=== PATIENT | female | born 1950 | race Caucasian/White ===

== ENCOUNTER 2017-02-10 07:28 | Day surgery (SDC) | payer BC ==
[2017-02-08 12:42] VITALS: BMI 40.0
[2017-02-10 08:29] LABS: INR 0.99 (0.82-1.09); PROTHROMBIN TIME (PATIENT) 10.9 SEC (9.98-11.88)
--- NOTE | 2017-02-10 10:03 | HP ---
Past Medical History - Primary Care Physician PCP:: James Stallworth - Admission Chief Complaint: 66yo female with several episodes of postmenopausal bleeding and endometrial mass, admitted for hysteroscopy, polypectomy, and D&C. History of Present Illness: Several episodes of PMB in last year and noted to have an endometrial mass. The pt has no bleeding now. 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: No: Alzheimer's, CVA, Dementia, Migraine, Multiple Sclerosis, Peripheral Neuropathy, Parkinson's, Seizure, Syncope, TIA, Vertigo, Other Cardiovascular: Yes: HTN, Murmur Pulmonary: Yes: Sleep Apnea Gastrointestinal: No: Ascites, Cancer, Constipation, Crohn's Disease, Diverticulitis, Diverticulosis, Esophageal Varices, Gastritis, GERD, GI Bleed, Hemorrhoids, Hiatal Hernia, Inflamatory Bowel Disease, Irritable Bowel Disease, Pancreatitis, Peptic Ulcer Disease, Ulcerative Colitis, Other Hepatobiliary: No: Cirrhosis, Cholelithiasis, Cholecystitis, Choledocholithiasis , Hepatitis A, Hepatitis B, Hepatitis C, Other Renal/: No: Renal Failure, Renal Inusuff, BPH, Cancer, Hematuria, Hemodialysis , Neurogenic Bladder, Renal Calculi, UTI, Other Reproductive: Yes: Endometriosis ...Para: 2 ( x 2) Heme/Onc: No: Anemia, B12 Deficiency, Bleeding Disorder, Cancer, Current Chemotherapy, Current Radiation Therapy, Hemochromatosis, Hypercoaguable State, Myeloproliferative Synd, Sickle Cell Disease, Sickle Cell Trait, Thrombocytopenia, Other Infectious Disease: No: AIDS, C-Diff, Herpes Zoster, HIV, MRSA, STD's, Tuberculosis, VREF, Other Psych: No: Addictions, Anxiety, Bipolar, Depression, Panic, Psychosis, Schizophrenia, Other Musculoskeletal: Yes: Osteoarthritis Rheumatology: No: Fibromyalgia, Gout, Lupus, Rheumatoid Arthritis, Sarcoidosis, Vasculitis, Other ENT: No: Allergic Rhinitis, Sinusitis, Other Endocrine: No: York's Disease, José Miguel's Disease, Diabetes Insipidus, Diabetes Mellitus, Hyperparathyroidism, Hyperthyroidism, Hypothyroidism, Osteopenia, SIADH, Other Dermatology: No: Basal Cell, Cellulitis, Eczema, Melanoma, Psoriasis, Squamous Cell, Other Additional Medical History: Obesity - Past Surgical History Hx Myomectomy: No Hx Transabdominal Cerclage: No Additional Surgical History: Laparoscopy. Left breast Bx - Smoking History Smoking history: Current every day smoker Have you smoked in the past 12 months: Yes Aproximately how many cigarettes per day: 5 - Alcohol/Substance Use Hx Alcohol Use: Yes (wine dinner) - Social History Usual Living Arrangement: Yes: With Spouse ADL: Independent Occupation: Retired History of Recent Travel: No Home Medications - Allergies Allergies/Adverse Reactions: Allergies Allergy/AdvReac Type Severity Reaction Status Date / Time No Known Allergies Allergy Verified 02/10/17 08:16 - Home Medications Home Medications: Ambulatory Orders Atorvastatin Ca [Lipitor] 10 mg PO DAILY 02/08/17 Multivitamin [Poly-Vitamin] 1 each PO DAILY 02/08/17 [place]-3/Dha/Epa/Fish Oil [Fish Oil 500 mg Softgel] 1 each PO DAILY 02/08/17 Sertraline HCl [Zoloft] 25 mg PO DAILY 02/08/17 Valsartan [Diovan] 80 mg PO DAILY 02/08/17 Family Disease History - Family Disease History Family Disease History: Heart Disease: Father ([place]) Review of Systems - Review of Systems Constitutional: reports: No Symptoms Eyes: reports: No Symptoms HENT: reports: No Symptoms Neck: reports: No Symptoms Cardiovascular: reports: No Symptoms Respiratory: reports: No Symptoms Gastrointestinal: reports: No Symptoms Genitourinary: reports: No Symptoms Breasts: reports: No Symptoms Reported Musculoskeletal: reports: No Symptoms Integumentary: reports: No Symptoms Neurological: reports: No Symptoms Endocrine: reports: No Symptoms Hematology/Lymphatic: reports: No Symptoms Psychiatric: reports: No Symptoms Pain Intensity: 0 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 Vital Signs: Vital Signs Temperature 98.1 F 02/10/17 08:12 Pulse Rate 71 02/10/17 08:12 Respiratory Rate 18 02/10/17 08:12 Blood Pressure 110/84 02/10/17 08:12 O2 Sat by Pulse Oximetry (%) 99 02/10/17 08:12 Constitutional: Yes: No Distress, Calm, Obese Eyes: Yes: WNL, Conjunctiva Clear, EOM Intact HENT: Yes: WNL, Atraumatic, Normocephalic Neck: Yes: WNL, Supple, Trachea Midline Cardiovascular: Yes: WNL, Regular Rate and Rhythm Respiratory: Yes: WNL, Regular, CTA Bilaterally Gastrointestinal: Yes: Normal Bowel Sounds, Soft, Abdomen, Obese ...Rectal Exam: Yes: WNL Renal/: Yes: WNL Pelvis: Yes: WNL External Genitalia: Yes: Normal Internal Exam Deferred: No Vaginal Exam: Yes: Normal Cervix: Yes: Normal Uterus: Yes: Normal Adnexa: Normal: Left, Right Breast(s): Yes: WNL Musculoskeletal: Yes: WNL Extremities: Yes: WNL Edema: No Integumentary: Yes: WNL Neurological: Yes: WNL, Alert, Oriented ...Motor Strength: WNL Psychiatric: Yes: WNL, Alert, Oriented Imaging - Results Ultrasound: Report Reviewed Assessment/Plan 66yo female with several episodes of postmenopausal bleeding and endometrial mass, admitted for hysteroscopy, polypectomy, and D&C. We had discussed the risks, benefits, alternatives of surgery at length including but not limited to infection, bleeding, scarring, perforation, amenorrhea, hysterectomy, etc. The pt verbalized understanding and requested to proceed with surgery. I emphasized that all surgeries have risks and no guarantees can be provided
[2017-02-10] MEDS ORDERED: PROPOFOL 20 ML ONE ×4 (10:19→10:58)
[2017-02-10] MEDS ORDERED: ceFAZolin SODIUM 1 GM VIAL IVPB ONE (10:50)
[2017-02-10] MEDS ORDERED: ceFAZolin SODIUM 1 GM VIAL ONE (10:50)
[2017-02-10] MEDS ORDERED: KETOROLAC TROMETHAMINE 30 MG/1 ML VIAL ONE (11:09)
--- NOTE | 2017-02-10 11:21 | OP ---
Operative Note - Note: Operative Date: 02/10/17 Pre-Operative Diagnosis: Postmenopausal bleeding Operation: Hysteroscopy, D&C, excision of Polyp Findings: Uterine polyp Post-Operative Diagnosis: Same as Pre-op Surgeon: James Stallworth Anesthesiologist/COUNSELING PSYCHOLOGIST: Herman Garcia Anesthesia: General Specimens Removed: Uterine polyps, endometrial curettings Estimated Blood Loss (mls): 5 Blood Volume Replaced (mls): 0 Fluid Volume Replaced (mls): 500 Operative Report Dictated: Yes
[2017-02-10] MEDS ORDERED: ONDANSETRON 4 MG/2 ML VIAL IVPUSH PRN (11:24)
[2017-02-10] MEDS ORDERED: ACETAMINOPHEN 325 MG TABLET (FP) PO PRN (11:24)
[2017-02-10] MEDS ORDERED: LACTATED RINGERS SOLUTION 1,000 ML IV SCH (11:30)
[2017-02-10 11:51] VITALS: TEMP 97.7
--- NOTE | 2017-02-10 12:30 | OP ---
DATE OF OPERATION: 02/10/2017 PREOPERATIVE DIAGNOSIS: Postmenopausal bleeding. POSTOPERATIVE DIAGNOSIS: Postmenopausal bleeding and polyps. SURGERY: Hysteroscopy, polypectomy, dilatation and curettage. SURGEON: James Stallworth MD ANESTHESIOLOGIST: Herman Garcia DO ANESTHESIA: General. COMPLICATIONS: None. PATHOLOGY: Endometrial polyps, endometrial curettings. FINDINGS: Examination under anesthesia revealed a small anteverted uterus. No pelvic or adnexal masses. Examination was limited by morbid obesity. Hysteroscopy revealed a small uterine cavity with endometrial polyps. Endometrial polyps were removed without complications, and normal endometrial cavity was noted at the endof the procedure. SURGERY DESCRIPTION: The patient was met preoperatively. Risks, benefits, and alternatives of surgery were discussed in details. All questions were answered. The patient was then brought to the OR with IV running. She was placed on the surgical table in the supine position. The general anesthesia was achieved without difficulty. The time-out procedure was conducted as per standard protocol. The patient was then placed in a dorsal lithotomy position using adjustable Pool stirrups. She was examined under anesthesia with the findings as described above. The patient was then prepped and draped in the usual sterile fashion. A sterile speculum was introduced inside the vagina with good visualization of the cervix. The cervix was then dilated to accommodate size 27 Alonso dilator. A hysteroscope was introduced inside the uterine cavity with the findings as described above. The hysteroscope was then removed. The uterine polyps were excised. Once the polyps were removed, they were sent to Pathology. The uterine curettage was then performed, and the specimen was sent to Pathology. The hysteroscope was again introduced into the uterine cavity, and a normal uterine cavity was noted, no other lesions were observed. The hysteroscope was removed. Good hemostasis was confirmed. Sponge, lap, and instrument counts were correct. The patient was returned to supine position and transferred to recovery room stable and awake. Mabel [id number]
[2017-02-10 14:14] VITALS: BP 118/61; PULSE 85
--- NOTE | 2017-02-13 12:23 | PATH ---
Surgical Pathology Report Patient Name: SHANNON CONLEY [facility]. Rec. #: [id number] /Age/Gender: 1950 (Age: 66) / F Account: [id number] Location: [facility] Taken: 02/10/2017 Received: 02/10/2017 Reported: 02/13/2017 Physicians: James Stallworth M.D. Specimen(s) Received A: ENDOMETRIAL POLYP B: ENDOMETRIAL CURETTINGS Clinical History Postmenopausal bleeding, endometrial polyp Final Diagnosis A. ENDOMETRIUM, POLYPECTOMY: BENIGN ENDOMETRIAL POLYP. B. ENDOMETRIUM, CURETTING: INACTIVE TO ATROPHIC ENDOMETRIUM, AND PORTION OF BENIGN ENDOMETRIAL POLYP. NO ENDOMETRIAL HYPERPLASIA OR CARCINOMA IDENTIFIED. Electronically Signed Archie Davila M.D. Gross Description A. Received in formalin labeled "endometrial polyp," are 2 pink-cho, polypoid portions of soft tissue measuring 1.0 x 0.4 x 0.2 cm and 1.6 x 0.5 x 0.2 cm. The specimens are submitted in toto in one cassette. B. Received in formalin labeled "endometrial curettings," is a 0.8 x 0.6 x 0.2 cm aggregate of cho-brown soft tissue fragments admixed with mucus. The formalin is filtered and the specimen is entirely submitted in one cassette. 02/10/201702/10/2017
== END 2017-02-10 14:23 | disposition home or self-care (01) ==
LOC: JASU-SURG 07:28
PROVIDERS: ATTEND Obstetrics & Gynecology
PROC: 0UB98ZX Excision of Uterus, Via Natural or Artificial Opening Endoscopic, Diagnostic (ICD-10-PCS; principal; 2017-02-10 09:00)
PROC: 0UDB8ZX Extraction of Endometrium, Via Natural or Artificial Opening Endoscopic, Diagnostic (ICD-10-PCS; 2017-02-10 09:00)
DX: N95.0 Postmenopausal bleeding (principal); N84.0 Polyp of corpus uteri
CPT/HCPCS: 36415; 85610; 85730; 86850; 86900; 86901; 88305-TC; 94760

== ENCOUNTER 2023-07-25 04:39 | Day surgery (SDC) | payer BC ==
[2023-07-18 14:28] VITALS: BMI 36.7
[2023-07-25 09:31] VITALS: TEMP 97.7
[2023-07-25 10:06] VITALS: BP 83/65; PULSE 74; RESP 16
== END 2023-07-25 10:25 | disposition home or self-care (01) ==
LOC: JASU-ENDO 04:39
PROVIDERS: ATTEND Internal Medicine Gastroenterology
PROC: 0DJD8ZZ Inspection of Lower Intestinal Tract, Via Natural or Artificial Opening Endoscopic (ICD-10-PCS; principal; 2023-07-25 09:00)
DX: Z12.11 Encounter for screening for malignant neoplasm of colon (principal); K57.30 Diverticulosis of large intestine without perforation or abscess without bleeding; K64.8 Other hemorrhoids; Z86.010 Personal history of colon polyps